=== PATIENT | female | born 1970 | race Caucasian/White ===

== ENCOUNTER → 2018-04-26 | Outpatient (CLI) | payer BC | LOC: RAD 06:02 → BC 12:15 → RAD 12:17 | DX: Z12.31 Encounter for screening mammogram for malignant neoplasm of breast (principal) ==

== ENCOUNTER → 2018-04-30 | Outpatient (CLI) | payer BC | LOC: RAD 02:24 | DX: R92.2 Inconclusive mammogram (principal) ==

== ENCOUNTER → 2019-05-02 | Outpatient (CLI) | payer BC | LOC: RAD 08:05 | DX: Z12.31 Encounter for screening mammogram for malignant neoplasm of breast (principal) ==

== ENCOUNTER → 2020-05-27 | Outpatient (CLI) | payer BC | LOC: RAD 08:58 | PROVIDERS: ATTEND Obstetrics & Gynecology | DX: Z12.31 Encounter for screening mammogram for malignant neoplasm of breast (principal) ==

== ENCOUNTER → 2021-06-03 | Outpatient (CLI) | payer BC | LOC: BC 08:54 | PROVIDERS: ATTEND Obstetrics & Gynecology | DX: Z12.31 Encounter for screening mammogram for malignant neoplasm of breast (principal) ==